=== PATIENT | male | born 1985 | race Caucasian/White ===

== ENCOUNTER → 2018-02-12 10:32 | Outpatient (CLI) | payer OTHER, SELFPAY ==
--- NOTE | 2018-02-12 10:43 | US_ITS ---
STUDY: ABDOMINAL ULTRASOUND REASON FOR EXAM: Male, 32 years old. Epigastric pain TECHNIQUE: Transabdominal ultrasound was performed with real-time and static velazquez scale imaging. TECHNICAL QUALITY: Adequate. COMPARISON: None. FINDINGS: Liver: The liver measures 12.4 cm. There is normal echogenicity of the liver. The bile ducts are within normal limits. There is hepatic color flow. The direction of portal flow is hepatopetal. There is a 1.2 cm cyst. Gallbladder: Normal distended gallbladder. The gallbladder wall measures 1 mm. There is a negative sonographic Cobian's sign. There is no pericholecystic fluid. There are no gallstones. Common Bile Duct (C.B.D.): The common bile duct measures 3 mm. Pancreas: Normal size of the head, body and tail of the pancreas. There is normal echogenicity of the pancreas. There is no demonstrated pancreatic mass or cyst. Spleen: Normal size of the spleen. The spleen measures 11.4 cm. Right Kidney: There is hypertrophy of the right kidney. The right kidney measures 18.2. There is extensive involvement with cysts throughout with numerous measuring greater than 4 cm and the largest at the upper pole with septation measuring 11.1 x 9.7 cm. There is echogenic focus with possible calcification in the mid aspect. There is no right hydronephrosis. Left Kidney: There is hypertrophy of the left kidney. The left kidney measures 16.6 cm. There is extensive involvement with multiple cysts measuring greater than 2.8 cm. Largest measures 3.7 x 3.6 cm. There is no left hydronephrosis. Aorta: Normal. I.V.C.: The IVC is patent. There is no ascites. US/Abdomen Complete IMPRESSION: Polycystic appearing kidneys. Possible stone on the right. No hydronephrosis. No gallstones or biliary dilatation. Electronically Signed: Adonis Rain MD at 13:27 EDT , Service support ,
--- NOTE | 2018-02-12 11:31 | RAD_ITS ---
STUDY: X-RAY CHEST REASON FOR EXAM: Male, 32 years old. Chest pain. TECHNIQUE: PA and lateral views of the chest. COMPARISON: January 26, 2017. FINDINGS: The lungs are clear and expanded. There is no demonstrated pleural abnormality. Normal size heart. Normal mediastinum and adriane. Normal visualized pulmonary arteries. Normal visualized aortic arch and descending thoracic aorta. Normal visualized thoracic spine. Normal visualized ribs, clavicles, and shoulders. There is no demonstrated abnormality of the visualized soft tissue structures of the upper abdomen. RAD/Chest PA and Lateral IMPRESSION: Normal x-ray examination of the chest. Electronically Signed: Adonis Rain MD at 14:40 EDT , Service support ,
== END ==
PROVIDERS: Family Provider Family Medicine; PCP Family Medicine; Visit Provider Nurse Practitioner
DX: R07.89 Other chest pain (principal)
CPT/HCPCS: 71046; 76700

== ENCOUNTER → 2018-06-03 14:11 | Outpatient (CLI) | payer OTHER, SELFPAY ==
--- NOTE | 2018-06-03 14:16 | CT_ITS ---
STUDY: CT CHEST WITHOUT CONTRAST REASON FOR EXAM: Male, 32 years old. Mid chest pain with activity. RADIATION DOSAGE (If Supplied By Facility): CTDIvol = ( 9.00 ) mGy, DLP = ( 310.92 ) mGycm TECHNIQUE: Transaxial imaging was performed without the administration of intravenous contrast material. Multiplanar coronal and sagittal images were reformatted. Individualized dose optimization techniques were used for this CT. COMPARISON: Chest x-ray: 02/12/2018 FINDINGS: The lungs are normal. There is no demonstrated pleural abnormality. Normal heart and pericardium. Normal mediastinum. Normal hilar regions. Normal unenhanced pulmonary arteries. Normal aorta arch and descending thoracic aorta. Benign bilateral axillary lymph nodes. Normal osseous structures. There is no demonstrated acute abnormality of the visualized upper abdomen. Both kidneys are enlarged, contain innumerable cysts. Multiple small hepatic cysts are also seen, findings are consistent with adult polycystic kidney disease. CT/Chest without Contrast IMPRESSION: 1. Unremarkable unenhanced CT Chest examination. 2. Likely adult/autosomal dominant polycystic kidney disease present with several small hepatic cysts. Electronically Signed: Rodrigo Holley MD at 9:55 EDT Tel , Service support ,
== END ==
PROVIDERS: Family Provider Nurse Practitioner; PCP Nurse Practitioner; Referring Provider Nurse Practitioner; Visit Provider Nurse Practitioner
DX: R07.89 Other chest pain (principal)
CPT/HCPCS: 71250

== ENCOUNTER → 2019-01-26 14:03 | Outpatient (CLI) | payer OTHER, SELFPAY ==
[2017-01-26 00:32] VITALS: BMI 21.6
[2019-01-26 14:27] LABS: Color, Urine Yellow (Yellow); Glucose, Dipstick Normal (Normal); Ketone-Dipstick Negative (Negative); Leukocyte Esterase-Dipstick Negative /ul (Negative); Nitrite-Dipstick Negative (Negative); Occult Blood-Urine 10 /ul (Negative); Protein-Dipstick Negative (Negative); Specific Gravity, Urine 1.005 (1.002-1.030); Urine Bilirubin Dipstick Negative (Negative); Urine Clarity Clear (Clear); Urine Urobilinogen Normal (Normal)
[2019-01-26 15:11] LABS: AST(SGOT) 28 U/L (15-37); Alanine Aminotransfer ALT/SGPT 57 U/L (16-61); Albumin, Serum 3.8 g/dL (3.2-5.0); Alkaline Phosphatase 88 U/L (45-117); Anion Gap 6 (5-15); BUN 10 mg/dL (7-18); BUN/Creat Ratio 10.8 RATIO (10-20); Calcium,Total 8.8 mg/dL (8.5-10.1); Chloride 106 mmol/L (98-107); Creatinine, Serum 0.92 mg/dL (0.70-1.30); EST Glomerular Filtration Rate 100 mL/min (>60); Est Glom Filt Rate - Afr Amer 121 mL/min (>60); Globulin 3.7 g/dL (2.2-4.2); Glucose 87 mg/dL (74-106); Potassium 3.6 mmol/L (3.5-5.1); Protein, Total 7.5 g/dL (6.4-8.2); Sodium Level 142 mmol/L (136-145)
[2019-01-26 15:17] LABS: Vitamin D,25 Hydroxy 25.2 ng/mL (29.95-100.01)
== END ==
PROVIDERS: Family Provider Nurse Practitioner; PCP Nurse Practitioner; Referring Provider Internal Medicine Nephrology; Visit Provider Internal Medicine Nephrology
DX: Q61.2 Polycystic kidney, adult type (principal)
CPT/HCPCS: 36415; 80053; 81002; 82306

== ENCOUNTER 2019-04-07 11:45 | Emergency (ER) | payer OTHER, SELFPAY ==
[2019-04-07 11:46] VITALS: BP 166/97; PULSE 85; RESP 16; TEMP 36.8; O2SAT 99; BMI 27.0
--- NOTE | 2019-04-07 12:05 | RAD_ITS ---
STUDY: X-RAY CHEST REASON FOR EXAM: Male, 33 years old. Chest pain. TECHNIQUE: Single AP portable view of the chest. COMPARISON: Comparison is made with prior examination dated February 12, 2018. FINDINGS: EKG electrodes are seen. The lungs are clear and expanded. There is no demonstrated pleural abnormality. Normal size heart. Normal mediastinum and adriane. Normal visualized pulmonary arteries. Normal visualized aortic arch and descending thoracic aorta. Normal visualized thoracic spine. Normal visualized ribs, clavicles, and shoulders. There is no demonstrated abnormality of the visualized soft tissue structures of the upper abdomen. RAD/Chest 1 View (Portable) IMPRESSION: Normal x-ray examination of the chest. Electronically Signed: Beltran Kellogg, at 12:56 EDT , Service support ,
--- NOTE | 2019-04-07 12:07 | EKG12_ITS ---
Test Reason : CP Blood Pressure : / mmHG Vent. Rate : 078 BPM Atrial Rate : 078 BPM P-R Int : 142 ms QRS Dur : 104 ms QT Int : 406 ms P-R-T Axes : 077 023 048 degrees QTc Int : 462 ms Normal sinus rhythm with sinus arrhythmia Normal ECG Confirmed by EMERITA CALDWELL, LILY ([id number]), scientific publications editor SHARAD FERRERA ([id number]) on 04/11/2019 11:23:31 AM Referred By: Keara Reeder Confirmed By:LILY FELDER MD
--- NOTE | 2019-04-07 12:15 | ED.DCSUM_ITS ---
- ER Visit Summary Date of Service: 04/07/19 Chief Complaint: Chest pain History of Present Illness: The patient is a 33 M who awoke with chest pain about 8 hours ago. He describes as a pressure in the left parasternal area. It does not radiate. Denies any shortness of breath. Nothing makes it better or worse. Denies dyspnea, nausea or vomiting. He felt like his hands were getting poor circulation. He has no history of any cardiac disease. He does have a history of polycystic kidney disease. He is a non-smoker. Physical Examination: Vital signs reviewed. HEENT exam unremarkable. Heart is regular rate and rhythm without murmurs. Lungs are clear to auscultation. Abdo men is soft and nontender. Extremities reveal no edema. Peripheral pulses are equal. Skin exam normal. Neurologic exam normal. Test Results: EKG is sinus rhythm with rate of 72. No ST changes. Chest x-ray per my and radiologist interpretation is unremarkable. Laboratory studies are normal as well. Emergency Department Course and Treatment: Patient was given aspirin and feels much better. He is PERC negative. His work appears negative. Unclear the etiology of his symptoms. He will need to call his doctor for follow-up. Treatment Plan: [] Disposition: Discharge Impression: Chest pain This note was generated with Opality dictation software. It may contain incorrect words, spelling, and punctuation that were not noted in review of the chart prior to signing ED Disposition - Plan for ED Patient: Referrals: Keara Reeder, JEROME-C [Primary Care Provider] -
[2019-04-07] MEDS: Aspirin 81 MG TAB.CHEW 324 MG PO (12:20)
[2019-04-07 12:28] LABS: Absolute Lymphocyte Count 1.39 X10^3/uL (0.83-4.51); Absolute Neutrophil Count 3.1 X10^3/uL (2.0-7.7); Basophil# 0.02 X10^3/uL; Basophil% 0.4 % (0-1); Eosinophil# 0.04 X10^3/uL; Eosinophils% 0.8 % (0-5); Hematocrit 47.8 % (40-54); Hemoglobin 15.9 g/dL (13.0-16.5); Lymphocyte # 1.39 X10^3/ul (4.0); Lymphocyte % 27.2 % (19-41); Mean Corp Hgb Conc 33.3 g/dL (32-36); Mean Corpuscular Hgb 30.2 pg (27.0-32.0); Mean Corpuscular Volume 90.9 fL (80-94); Monocyte# 0.56 X10^3/uL; NRBC Flagged by Analyzer 0 % (0-5); Neutrophil # 3.08 X10^3/uL (2.7-7.7); Neutrophil % 60.2 % (47-70); Platelet Count 258 K/mm3 (150-450); RBC Distribution Width CV 11.7 % (11.6-14.6); RBC Distribution Width SD 38.9 fl (35.1-43.9); Red Blood Count 5.26 M/mm3 (4.6-6.2); White Blood Count 5.1 K/mm3 (4.4-11.0)
[2019-04-07 12:45] LABS: Anion Gap 4 (5-15); BUN 9 mg/dL (7-18); Calcium,Total 9.1 mg/dL (8.5-10.1); Chloride 106 mmol/L (98-107); EST Glomerular Filtration Rate 103 mL/min (>60); Est Glom Filt Rate - Afr Amer 124 mL/min (>60); Estimated Creatinine Clearance 123.18 ml/min; Glucose 87 mg/dL (74-106); Potassium 3.7 mmol/L (3.5-5.1); Sodium Level 141 mmol/L (136-145)
[2019-04-07 13:00] VITALS: BP 145/95; PULSE 71; RESP 16; O2SAT 96
--- NOTE | 2019-04-07 13:20 | ED.DEP ---
ED Disposition - Plan for ED Patient: Disposition: Home or Assisted Living Instructions: CHEST PAIN, NonCardiac Referrals: Keara Reeder NP-C [Primary Care Provider] -
[2019-04-07 13:26] VITALS: BP 137/91; PULSE 62
== END 2019-04-07 13:36 | disposition home or self-care (01) ==
PROVIDERS: Emergency Provider Emergency Medicine; Family Provider Nurse Practitioner; PCP Nurse Practitioner
DX: R07.9 Chest pain, unspecified (principal); Q61.3 Polycystic kidney, unspecified
CPT/HCPCS: 71045; 80048; 84484; 85025; 93005; 99285; A4216

== ENCOUNTER 2019-04-14 10:30 | Outpatient (RCR) | payer OTHER, SELFPAY ==
--- NOTE | 2019-03-30 13:40 | HP.PTEVAL_ITS ---
Patient's Visit Information SANKET RUELAS is a 33 year old M referred to Physical Therapy by AJIT Mcclain with a diagnosis of SHOULDER PAIN. Date of Evaluation: 03/30/19 Physical Therapist: Lindy Talavera PT, Cert MDT - Visit Plan Frequency: 2-3x /Week Duration: 4-6 Weeks Plan: *MONITOR RIGHT UE SX'S INCLUDING DIGITS ONE AND TWO*. US TO NECK. MANUAL THERAPY - CERVICAL STM AND TRACTION. POSTURE CORRECTION/STRENGTHENING, INSTRUCTION IN APPROPRIATE BODY MECHANICS AND ACTIVITY MODIFICATIONS. TRACI UE ROM, STRETCHING AND STRENGTHENING. HEP INSTRUCTION. - Subjective Findings: Work/Leisure: [employer]. Disability: NO. Present symptoms: RIGHT SHOULDER PAIN AND NUMBNESS RIGHT DIGITS 2 AND 3. HEADACHES. Present since: ABOUT 2 MONTHS AGO. Pain Scale: Worst - 2/10 Least - 0/10. Commenced as a result of: NO APPARENT REASON OTHER THAN PULL UP TWISTING AND TURNING. MAYBE SHOULDER SHRUGS WITH 55 LBS TRACI. Symptoms at onset: RIGHT SHOULDER BLADE. FINGER NUMBESS STARTED MORE RECENTLY. Worse: WEIGHT LIFTING, EXTENDING HEAD BACK AND DO THE RIGHT, LIFTS. Better: AVOIDING BENCH PRESS LYING FLAT AND EXTENDING HEAD. Disturbed sleep: YES. Previous history/Previous treatment: UNREMARKABLE. Dizziness: NO. Tinnitis: NO. Nausea: NO. Shortness of Breath: NO. Difficulty Swollowing: NO. Gait: NORMAL. Accidents: NO. Unexplained weight loss: NO. Imaging: NO NECK OR CARMITA ULDER IMAGING. PMH/Recent major surgery: POLYCYSTIC KIDNEY DZ. MONITORS BLOOD PRESSURE CLOSELY, GERD - Pain RIGHT SHOULDER Pain Intensity (Out of 10): 0 Right Thumb and Index Pain Intensity (Out of 10): 1 - Objective Sitting Posture/Standing Posture: POOR. FORWARD HEAD. NO TORICOLLIS. Other Observations: INDEP GAIT AND TRANSFERS. Motor deficit: TRACI UE STRENGTH GROSSLY 5/5 WITH MMT'ING EXCEPT SCAPULAR REGION 4/5. Sensory deficit: NO. ROM deficit: TRACI UE'S WFL. Reflexes: NT. Dural Signs: POSITIVE RIGHT UE. Cervical Mvmt Loss: Flex: NIL. Pro: NIL. Ext: MOD. Ret: MOD. RSB: MIN. LSB: MIN. R Rot: MIN. L Rot: MIN. Postural strength: FAIR - Goals Goal 1:: DECREASE C/O RIGHT SHOULDER PAIN Goal Time Frame: 4-6 Weeks Goal 2:: IMPROVE LIFTING, SLEEPING, WORK, DRIVING AND RECREATIONAL FUNCTION Goal Time Frame: 4-6 Weeks Goal 3:: INSTRUCT IN PROPHYLAXIS Goal Time Frame: 4-6 Weeks - Rehabilitation Potential Rehabilitation Potential: Good - Anticipated Interventions Patient/Client Instruction: Educate patient on: Condition, Plan of Care, Risk Factors, Benefits of Fitness Program For the Purpose of:: To improve self management Therapeutic Exercise to Include: Strength training, Body mechanics, Postural training, Flexibilty training, Scapular Strength/Stabilization For the Purpose of:: To decrease pain, To improve muscle performance and motor function, To increase tolerance to activity/condition/position, To improve ability of physical actions for home/community/work/leisure Manual Therapy Techniques to Include: Mobilization, Soft tissue mobilization For the Purpose of:: To decrease pain, To increase ROM, To improve nutrient delivery to tissue TENS: Yes IF ES: Yes Cryotherapy (ice pack, ice massage): Yes Thermo therapy (hot pack): Yes Ultrasound (thermal/non thermal): Yes For the Purpose of:: To decrease pain, To decrease swelling/inflammation, To improve nutrient delivery to tissue Thank you for the opportunity to evaluate your patient. For Medicare and Medicare HMO plans, please review the plan of care and approve it. It will need to be FAXED BACK to us at [phone] for Medicare purposes. For Medicare only, by signing this I certify the plan of care. Please let me know if there are questions or concerns regarding this plan of care. Physician Signature: Date:
--- NOTE | 2019-04-14 11:26 | HP.PTREVAL_ITS ---
Keara Reeder, ACCOUNT SUPPORT SPECIALIST-C, It has been my pleasure to treat SANKET RUELAS over the last 7 visits for SHOULDER PAIN. Please see the progress note below for an update on the physical therapy plan of care! Subjective: PATIENT REPORTS HE SLEPT GREAT LAST NIGHT (IS ACTUALLY LATE BECAUSE SLEPT RIGHT THROUGH HIS ALARM) AND ISN'T HAVING ANY SYMPTOMS TODAY. STATES HE IS AT OR NEAR 100% BETTER BUT STILL BEING SOMEWHAT CAREFUL. Objective/Function: PATIENT IS SYMPTOM FREE INCLUDING NOT HAVING ANY TINGLING IN HIS FINGERS. UPON EXAM TODAY HIS NECK ROM, TRACI UE ROM AND STRENGTH IS WFL. HE IS INDEP WITH A HEP AND ALL GOALS APPEAR TO HAVE BEEN MET. HE COMMUNICATES A GOOD UNDERSTANDING OF ALL INSTRUCTIONS GIVEN DURING THIS EPISODE OF CARE AND IS PROBABLY READY FOR DISCHARGE. THIS PT AND PATIENT AGREED TO HOLD THERAPY FOR 2 WEEKS TO SEE IF HE REMAINS BETTER AND IS ABLE TO RESUME FULL ACTIVITY. Plan Plan: HOLD PT. RESUME TRACTION AND POC APPRORIATE IF NEEDED. Goals Goal 1:: DECREASE C/O RIGHT SHOULDER PAIN Goal Time Frame: 4-6 Weeks Goal Progress: Progressing Goal 2:: IMPROVE LIFTING, SLEEPING, WORK, DRIVING AND RECREATIONAL FUNCTION Goal Time Frame: 4-6 Weeks Goal Progress: Progressing Goal 3:: INSTRUCT IN PROPHYLAXIS Goal Time Frame: 4-6 Weeks Goal Progress: Progressing Anticipated Interventions Patient/Client Instruction: Educate patient on: Condition, Plan of Care, Risk Factors, Benefits of Fitness Program For the Purpose of:: To improve self management Therapeutic Exercise to Include: Strength training, Body mechanics, Postural training, Flexibilty training, Scapular Strength/Stabilization For the Purpose of:: To decrease pain, To improve muscle performance and motor function, To increase tolerance to activity/condition/position, To improve ability of physical actions for home/community/work/leisure Manual Therapy Techniques to Include: Mobilization, Soft tissue mobilization For the Purpose of:: To decrease pain, To increase ROM, To improve nutrient delivery to tissue TENS: Yes IF ES: Yes Cryotherapy (ice pack, ice massage): Yes Thermo therapy (hot pack): Yes Ultrasound (thermal/non thermal): Yes For the Purpose of:: To decrease pain, To decrease swelling/inflammation, To improve nutrient delivery to tissue Please do not hesitate to contact me at [phone] by phone or if you have questions or concerns regarding this new plan of care! Sincerely, Lindy Talavera, PT, Cert MDT
--- NOTE | 2019-06-15 14:55 | HP.PTDCNRP_ITS ---
HP - Discharge Summary (1) - Patient Information SANKET RUELAS was seen in my office for initial evaluation on 03/30/19. The following Plan of Care was established for this patient: Initial Frequency: 2-3x /Week Initial Duration: 4-6 Weeks - Anticipated Interventions Patient/Client Instruction: Educate patient on: Condition, Plan of Care, Risk Factors, Benefits of Fitness Program For the Purpose of:: To improve self management Therapeutic Exercise to Include: Strength training, Body mechanics, Postural training, Flexibilty training, Scapular Strength/Stabilization For the Purpose of:: To decrease pain, To improve muscle performance and motor function, To increase tolerance to activity/condition/position, To improve ability of physical actions for home/community/work/leisure Manual Therapy Techniques to Include: Mobilization, Soft tissue mobilization For the Purpose of:: To decrease pain, To increase ROM, To improve nutrient delivery to tissue TENS: Yes IF ES: Yes Cryotherapy (ice pack, ice massage): Yes Thermo therapy (hot pack): Yes Ultrasound (thermal/non thermal): Yes For the Purpose of:: To decrease pain, To decrease swelling/inflammation, To i mprove nutrient delivery to tissue This patient was last seen in our office 04/14/19. Pertinent comments regarding their Physical therapy will appear below: This patient has not returned to Physical Therapy and is appropriate to return to MD for further follow-up as needed. At this point I will be discontinuing this patient from physical therapy. I would be happy to see this patient again in the future if found appropriate by the physician. Thank you! Lindy Talavera, PT, Cert MDT
== END 2019-04-14 19:00 | disposition home or self-care (01) ==
LOC: PT 10:30
PROVIDERS: Family Provider Nurse Practitioner; PCP Nurse Practitioner; Referring Provider Nurse Practitioner; Visit Provider Nurse Practitioner
DX: M25.519 Pain in unspecified shoulder (principal)
CPT/HCPCS: 97012; 97035; 97110; 97140; 97161; 97530

== ENCOUNTER → 2021-02-27 17:53 | Outpatient (CLI) | payer OTHER, SELFPAY ==
--- NOTE | 2021-02-27 18:04 | CT_ITS ---
STUDY: CT BRAIN WITHOUT CONTRAST REASON FOR EXAM: Male, 35 years old. HEAD LUMP RADIATION DOSAGE (If Supplied By Facility): CTDIvol = ( 44.99 ) mGy, DLP = ( 796.11 ) mGycm TECHNIQUE: Transaxial CT imaging of the brain was performed without administration of intravenous contrast material. Individualized dose optimization techniques were used for this CT. COMPARISON: No relevant priors. FINDINGS: Normal soft tissue structures. Normal calvarium. Normal size ventricles and extra-axial spaces for the patient''s age. Normal white matter tracts of the cerebral hemispheres. Normal basal ganglia and thalami. Normal brainstem. Normal cerebellum. There is no intracranial hemorrhage. There are no findings of an acute ischemic infarction. There is mucoperiosteal inflammatory disease of the paranasal sinuses consistent with mild chronic sinusitis. CT/Brain/Head without Contrast IMPRESSION: Normal unenhanced CT scan of the brain. Electronically Signed: Casimiro Seo MD at 8:54 EDT Tel , Service support ,
== END ==
PROVIDERS: PCP Nurse Practitioner; Visit Provider Internal Medicine
DX: R22.0 Localized swelling, mass and lump, head (principal)
CPT/HCPCS: 70450

== ENCOUNTER → 2022-03-23 | Outpatient (CLI) | payer OTHER, SELFPAY ==
--- NOTE | 2022-03-23 09:30 | US_ITS ---
INDICATION: ELEVATED LIVER FUNCTIONS EXAMINATION: Ultrasound US Abdomen Limited (quadrant) TECHNIQUE: Bucio scale imaging with graded compression and color doppler was obtained of the right upper quadrant. COMPARISON: Abdomen ultrasound from 02/12/2018. FINDINGS: Liver: The liver measures 15.4 cm and is normal in size. Redemonstration of innumerable cysts measuring up to 3.5 cm in the right lobe. Increased echogenicity of the hepatic parenchyma likely related to fatty infiltration. No biliary dilatation. Hepatopedal portal venous flow. Gallbladder: Normal appearance. No cholelithiasis or sludge. Negative Cobian''s sign. No wall thickening. Common bile duct measures 4.7 mm which is within normal limits. Pancreas: Visualized pancreatic head is within normal limits. The pancreatic body and tail are obscured by overlying bowel gas. Right kidney: Enlarged measuring up to 21 cm and overall similar to previous studies. Redemonstration of innumerable cysts. Cortical thinning measuring up to 0.5 cm in width. No hydronephrosis. No echogenic calculi. US/Abdomen Limited IMPRESSION: 1. No acute findings. 2. Diffuse hepatic steatosis. 3. Redemonstration of innumerable hepatic and renal cysts compatible with patient''s known history of polycystic kidney disease. Electronically Signed: Tyson Munoz, at 13:41 EDT ,
== END | disposition home or self-care (01) ==
PROVIDERS: PCP Nurse Practitioner Family; Referring Provider Nurse Practitioner Family; Visit Provider Nurse Practitioner Family
DX: K76.0 Fatty (change of) liver, not elsewhere classified (principal); R94.5 Abnormal results of liver function studies
CPT/HCPCS: 76705